=== PATIENT | male | born 1995 | race Caucasian/White ===

== ENCOUNTER 2016-12-29 09:39 | Outpatient (CLI) | payer MEDICAID | END 2016-12-29 09:40 | disposition home or self-care (01) | DX: K21.9 Gastro-esophageal reflux disease without esophagitis (principal); R07.9 Chest pain, unspecified ==

== ENCOUNTER 2016-12-29 14:00 | Outpatient (CLI) | payer MEDICAID | END 2016-12-29 14:30 | disposition home or self-care (01) | DX: R07.9 Chest pain, unspecified (principal); K21.9 Gastro-esophageal reflux disease without esophagitis ==

== ENCOUNTER 2016-12-29 14:30 | Outpatient (CLI) | payer MEDICAID | END 2016-12-29 14:31 | disposition home or self-care (01) | DX: K21.9 Gastro-esophageal reflux disease without esophagitis (principal); R07.9 Chest pain, unspecified ==